=== PATIENT | female | born 2005 | race Caucasian/White ===

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

== ENCOUNTER 2023-04-09 07:37 | Outpatient (CLI) | payer OTHER ==
[~2023-04-09] VITALS: Ht 175.3 cm; Wt 108.2 kg
[2023-04-09] MEDS ORDERED: PRENTAB9 PO (07:54)
[2023-04-09 07:59] VITALS: BP 140/82
[2023-04-09 08:30] VITALS: BP 106/60
[2023-04-09 09:09] LABS: APPEARANCE, URINE CLEAR (CLEAR); BACTERIA, URINE AUTO NEGATIVE (NEGATIVE); BILIRUBIN, URINE AUTO NEGATIVE (NEGATIVE); BLOOD, URINE BLOOD NEGATIVE (NEGATIVE); COLOR, URINE YELLOW (YELLOW); GLUCOSE, URINE (UA) AUTO NEGATIVE (NEGATIVE); KETONE, URINE AUTO NEGATIVE (NEGATIVE); LEUKOCYTE ESTERASE, URINE AUTO NEGATIVE (NEGATIVE); MUCUS, URINE SMALL (NEGATIVE); NITRITE, URINE AUTO NEGATIVE (NEGATIVE); PROTEIN, URINE AUTO NEGATIVE (NEGATIVE); RBC, URINE AUTO 0 /HPF (0-3); SPECIFIC GRAVITY URINE AUTO 1.012 (1.002-1.035); SQUAMOUS EPITHELIAL CELL UR AU 3 /HPF (0-6); UROBILINOGEN, URINE AUTO 0.2 mg/dL (0.0-2.0); WBC, URINE AUTO 1 /HPF (0-3)
== END 2023-04-09 12:33 | disposition home or self-care (01) ==
LOC: M LDO 07:37
PROVIDERS: ATTEND Advanced Practice Midwife
DX: O23.593 Infection of other part of genital tract in pregnancy, third trimester (principal); O26.893 Other specified pregnancy related conditions, third trimester; R25.2 Cramp and spasm; Z3A.32 32 weeks gestation of pregnancy
CPT/HCPCS: 59025; 81001; 87088; 87635; G0463

== ENCOUNTER 2023-06-02 11:47 | Inpatient (IN) | payer OTHER ==
[~2023-06-02] VITALS: Ht 175.3 cm; Wt 118.5 kg
[2023-06-02] VITALS (7 sets, daily range): BP systolic 127–143; BP diastolic 70–84
[~2023-06-02 11:47] MED LIST: PRENTAB9 PO
[2023-06-02] MEDS ORDERED: HOME MED LIST COMPLETE! XX SCH (12:15)
[2023-06-02] MEDS ORDERED: OXYTOCIN DRIP 30 UNITS in IV 1 EA IV PRN ×6 (12:25)
[2023-06-02] MEDS ORDERED: LIDOCAINE 1% MDV 20ML VIAL INFIL PRN (12:25)
[2023-06-02] MEDS: LR 1,000 ML IV SCH (12:25)
[2023-06-02] MEDS ORDERED: OXYTOCIN INJ 10UNITS/ML 1ML VIAL IM PRN (12:25)
[2023-06-02] MEDS ORDERED: TRANEXAMIC ACID INJection 1,000 MG in NS 100 ML IV PRN (12:25)
[2023-06-02] MEDS ORDERED: LACTATED RINGER'S 1000 ML IV STA (12:25)
[2023-06-02] MEDS ORDERED: METHYLERGONOVINE MALEATE 0.2MG/ML 1ML VIAL IM PRN (12:25)
[2023-06-02] MEDS ORDERED: CARBOPROST TROMETHAMINE 250 MCG/ML AMP IM PRN (12:25)
[2023-06-02 13:12] LABS: HEMATOCRIT 36.8 % (36.0-47.0); HEMOGLOBIN 12.3 g/dl (12.0-15.5); MEAN CORPUSCULAR HEMOGLOBIN 27.8 pg (27.0-33.0); MEAN CORPUSCULAR HGB CONC 33.4 g/dl (32.0-36.5); MEAN CORPUSCULAR VOLUME 83.1 fl (80.0-96.0); PLATELET COUNT, AUTOMATED 249 10^3/uL (150-450); RED BLOOD COUNT 4.43 10^6/uL (4.00-5.40); WHITE BLOOD COUNT 9.8 10^3/uL (4.0-10.0)
[2023-06-02] MEDS: miSOPROStol 50MCG 1/2 TABLET PO SCH ×3 (13:18→21:25)
[2023-06-02] MEDS ORDERED: LR 1,000 ML IV PRN (14:05)
[2023-06-03] VITALS (22 sets, daily range): BP systolic 118–170; BP diastolic 64–102; O2SAT 98
[2023-06-03] MEDS: miSOPROStol 50MCG 1/2 TABLET PO SCH ×3 (02:20→15:11)
[2023-06-03] MEDS: LR 1,000 ML IV SCH ×3 (04:25→12:25)
[2023-06-03] MEDS ORDERED: NALBUPHINE HCL 1MG/0.1ML (100MG/10ML) MDV IV PRN (06:25)
[2023-06-03] MEDS ORDERED: PROMETHAZINE 25MG/ML 1ML VIAL IV ONE (06:25)
[2023-06-03] MEDS ORDERED: FENTANYL 2MCG/ML ROPIVACAINE 0.2% IN 0.9% NACL 100ML IVBAG As Ordered ONE (09:49)
[2023-06-03] MEDS ORDERED: ePHEDrine SULFATE 25 MG/5 ML(5MG/ML) SYRINGE IVP PRN (09:50)
[2023-06-03] MEDS ORDERED: NALOXONE INJ 0.4MG/1ML VIAL IV PRN (09:50)
[2023-06-03] MEDS ORDERED: diphenhydrAMINE 50MG/ML VIAL IV PRN (09:50)
[2023-06-03] MEDS ORDERED: ONDANSETRON 4MG 2ML VIAL IV PRN (09:50)
[2023-06-03] MEDS ORDERED: LR 500 ML IV PRN (09:50)
[2023-06-03] MEDS ORDERED: EPIDURAL/PCA KEYS XX PRN (09:50)
[2023-06-03] MEDS: FENTANYL/ROPIVACAINE/NACL BAG 100 ML EPIDURAL SCH ×2 (10:13→19:50)
[2023-06-03] MEDS ORDERED: METHYLERGONOVINE MALEATE 0.2 MG TAB PO PRN (13:25)
[2023-06-03] MEDS ORDERED: DIBUCAINE 1% OINTMENT 30GM TOP PRN (13:25)
[2023-06-03] MEDS ORDERED: ACETAMINOPHEN TAB 650MG DOSE (2X325MG) PO PRN (13:25)
[2023-06-03] MEDS ORDERED: IBUPROFEN 600MG TAB PO PRN (13:25)
[2023-06-03] MEDS ORDERED: OXYTOCIN DRIP 30 UNITS in IV 1 EA IV SCH (13:25)
[2023-06-03] MEDS ORDERED: ACETAMINOPHEN 500 MG TAB PO PRN (13:25)
[2023-06-03] MEDS ORDERED: DOCUSATE SODIUM 100MG CAPSULE PO PRN (13:25)
[2023-06-03] MEDS: IBUPROFEN 800 MG TAB PO PRN (15:10)
[2023-06-04 06:00] VITALS: BP 129/68; O2SAT 98
[2023-06-04] MEDS ORDERED: INFLUENZA QUADRIVALENT PF VACCINE 0.5ML SYRINGE IM.IMMUN ONE (09:00)
[2023-06-04] MEDS: PRENATAL VITAMINS CHEWABLE TABLET PO SCH (09:09)
[2023-06-04] MEDS: IBUPROFEN 800 MG TAB PO PRN ×2 (09:11→17:27)
[2023-06-05 06:00] VITALS: BP 115/63; O2SAT 99
[2023-06-05] MEDS: PRENATAL VITAMINS CHEWABLE TABLET PO SCH (08:35)
[2023-06-05 08:40] VITALS: BP 115/63; TEMP 97.2; O2SAT 99
[2023-06-05 10:00] VITALS: BP 147/87; O2SAT 98
== END 2023-06-05 13:02 | disposition home or self-care (01) | DRG 807 ==
LOC: M LDI 11:47 → M OBS 06-03 15:23
PROVIDERS: ADMIT Obstetrics & Gynecology; ATTEND Advanced Practice Midwife
PROC: 3E033VJ Introduction of Other Hormone into Peripheral Vein, Percutaneous Approach (ICD-10-PCS; 2023-06-02)
PROC: 10E0XZZ Delivery of Products of Conception, External Approach (ICD-10-PCS; principal; 2023-06-03)
PROC: 0HQ9XZZ Repair Perineum Skin, External Approach (ICD-10-PCS; 2023-06-03)
DX: O48.0 Post-term pregnancy (principal); Z37.0 Single live birth; Z3A.40 40 weeks gestation of pregnancy; O70.0 First degree perineal laceration during delivery; O69.82X0 Labor and delivery complicated by other cord entanglement, without compression, not applicable or unspecified

== ENCOUNTER → 2024-06-10 | Outpatient (REF) | payer SELFPAY | LOC: M SFHCWAGY 13:08 | PROVIDERS: ATTEND Nurse Practitioner Family | DX: Z12.4 Encounter for screening for malignant neoplasm of cervix (principal); Z01.419 Encounter for gynecological examination (general) (routine) without abnormal findings; Z77.9 Other contact with and (suspected) exposures hazardous to health ==